=== PATIENT | female | born 1995 | race Hispanic/Latino ===

== ENCOUNTER 2018-08-04 17:23 | Emergency (ER) | payer SELFPAY ==
[2018-08-04 18:00] VITALS: BP 157/81
--- NOTE | 2018-08-04 18:03 | Emergency Department Report ---
Blank Doc - Documentation Documentation: 23 yo female presents with hives, itching on back and arm Plan: treat Reevalute
[2018-08-04] MEDS ORDERED: DECADRON IM STA (19:28)
[2018-08-04] MEDS ORDERED: KEFLEX PO ONE (19:28)
--- NOTE | 2018-08-04 19:28 | Emergency Department Report ---
ED Rash HPI - HPI Chief Complaint: Skin Rash Stated Complaint: RASH ON ARM Time Seen by Provider: 08/04/18 17:58 Duration: 2 Days Location: Upper Extremities (back of left arm) Suspected Cause: Insect (patient report mosquito bite) Rash Symptoms: Yes Itching (redness and swelling), No Facial Swelling, No Tongue/Oral Swelling, No Breathing Difficulties, No Choking Sensation, No Wheezing/Dyspnea, No Peeling, No Blistering, No Fever, No Lightheaded, No Malaise, No Myalgias Severity: mild Other History: This is a 23-year-old female here report that she thinks she has been bitten by mosquitoes to the back of her left arm. She denies any respiratory symptoms. Denies any fever or chills. Denies any cough or shortnes s of breath. Pain is 0-10. Immunizations up-to-date. This is included tetanus. She denies any medical problems. ED Review of Systems ROS: Stated complaint: RASH ON ARM Other details as noted in HPI Constitutional: denies: chills, fever ENT: denies: throat pain, congestion Respiratory: denies: cough, shortness of breath, wheezing Cardiovascular: denies: chest pain Gastrointestinal: denies: nausea, vomiting Musculoskeletal: denies: back pain, arthralgia, myalgia Skin: rash, pruritus Neurological: denies: headache ED Past Medical Hx - Past Medical History Previous Medical History?: No - Surgical History Past Surgical History?: No - Family History Family history: hypertension - Social History Smoking Status: Never Smoker Substance Use Type: None - Medications Home Medications: Home Medications Medication Instructions Recorded Confirmed Last Taken Type cephALEXin [Keflex] 500 mg PO Q8HR 7 Days #21 cap 08/04/18 Unknown Rx hydrOXYzine HCL [Atarax] 25 mg PO Q6HR PRN #12 tablet 08/04/18 Unknown Rx methylPREDNISolone [Medrol Dose 4 mg PO DAILY #1 tab.ds.pk 08/04/18 Unknown Rx Stan] Rash Exam - Exam General: Vital signs noted. No distress. Alert and acting appropriately. This is a 23-year-old female well-nourished well-developed in no acute distress. HEENT: No Periorbital Edema, No Conjuctival Injection, No Chemosis, No Perioral Edema, No Tongue Edema, No Uvular Edema, No Compromised Airway, No Drooling Lungs: Yes Good Air Exchange, No Wheezes, No Ronchi, No Stridor, No Cough, No Labored Respirations, No Retractions, No Use of Accessory Muscles, No Other Abnormal Lung Sounds Heart: Yes Regular, No Murmur Front/Back of Body, Lg (Color): 1 - Patient with dime size areas to distal, posterior left arm. Erythema what whelps. Nontender to palpate. She has above 4-5 areas on her arm. Skin: Yes Urticarial Rash (left posterior distal arm), Yes Erythema (left posterior distal arm), No Maculopapular Rash, No Morbilliform rash, No Bulla(e), No Excoriations, No Weeping, No Tenderness, No Edema, No Encrustations, No Other Other: Positive: Abdomen Normal, Neurologic Normal, Musculoskeletal Normal ED Course Vital Signs 08/04/18 17:58 Temperature 97.8 F Pulse Rate 77 Respiratory 18 Rate Blood Pressure 157/81 O2 Sat by Pulse 97 Oximetry - Reevaluation(s) Reevaluation #1: 08/04/18 20:20 Patient was given Decadron 10 mg IM and Keflex for contact dermatitis versus bacterial infection ED Medical Decision Making - Medical Decision Making This is a 23-year-old female here due to whelps on her left posterior arm and she thinks she has been bitten by a mosquito but she is not sure. She reports itching but no pain. She has no respiratory symptoms. She was treated with Decadron 10 mg IM and also Keflex 500 mg by mouth for contact dermatitis with possible bacterial infection. I discussed the patient she needs to follow-up with a wire drawing die maker if this is not resolved in 3-5 days that she was u nderstanding. Patient discharged home in stable condition. Her vital signs see wishes a febrile and discharged home with prescription for Medrol Dosepak, Atarax and Keflex. I will refer her to Dr. wadsworth. Critical care attestation.: If time is entered above; I have spent that time in minutes in the direct care of this critically ill patient, excluding procedure time. ED Disposition Clinical Impression: Contact dermatitis Qualifiers: Contact dermatitis type: unspecified Contact dermatitis trigger: unspecified trigger Qualified Code(s): L25.9 - Unspecified contact dermatitis, unspecified cause Cellulitis Qualifiers: Site of cellulitis: extremity Site of cellulitis of extremity: upper extremity Laterality: left Qualified Code(s): L03.114 - Cellulitis of left upper limb Disposition: DC- TO HOME OR SELFCARE Is pt being admited?: No Does the pt Need Aspirin: No Condition: Stable Instructions: Cellulitis (ED), Contact Dermatitis (ED) Additional Instructions: Keep affected areas clean and dry Follow-up with wire drawing die maker in 3-5 days If affected area becomes worse, with fever or chills, nausea vomiting and, drainage, return to the emergency room SANDRA Take medication as prescribed and please do not drive or operate heavy machinery while taking Atarax for itching as this medication can cause drowsiness Referrals: WONG STEPHENS MD [Primary Care Provider] - 3-5 Days PARVIZ WADSWORTH MD [Staff Physician] - 3-5 Days [facility] [Outside] - 3-5 Days Forms: Work/School Release Form(ED)
[2018-08-04] MEDS ORDERED: DECADRON ONE (19:44)
== END 2018-08-04 20:46 | disposition home or self-care (01) ==
LOC: ED 17:23
DX: L03.114 Cellulitis of left upper limb (principal)
CPT/HCPCS: 96372; 99282; J1100